=== PATIENT | male | born 1960 | race Hispanic/Latino ===

== ENCOUNTER 2025-02-16 05:32 | Day surgery (SDC) | payer OTHER ==
[2025-02-14 11:24] LABS: BASOPHILS # (AUTO) 0.03 K/uL (0.00-0.20); BASOPHILS % (AUTO) 0.4 % (0.0-5.0); EOSINOPHILS # (AUTO) 0.05 K/uL (0.00-0.70); EOSINOPHILS % (AUTO) 0.6 % (0.0-8.0); HEMATOCRIT 42.5 % (42-54); IMMATURE GRANULOCYTE ABSOLUTE 0.07 K/uL (0-1); LYMPHOCYTES % (AUTO) 25.6 % (21.0-51.0); MEAN CORPUSCULAR HEMOGLOBIN 33.1 pg (27.0-33.0); MEAN CORPUSCULAR HGB CONC 33.9 g/dL (32.0-36.0); MEAN CORPUSCULAR VOLUME 97.7 fL (79-99); MONOCYTES # (AUTO) 0.5 K/uL (0.1-1.0); NEUTROPHILS # (AUTO) 5.3 K/uL (1.8-7.7); NEUTROPHILS % (AUTO) 66.5 % (40.0-77.0); PLATELET COUNT (AUTO) 242 K/uL (130-400); RED BLOOD CELL COUNT(AUTO) 4.35 MIL/uL (4.50-6.20); RED CELL DISTRIBUTION WIDTH 12.3 % (11.0-15.5)
[2025-02-14 11:29] VITALS: BP 152/73; PULSE 72; RESP 16; TEMP 98
[2025-02-14 11:30] LABS: APPEARANCE,URINE CLEAR (CLEAR); BILIRUBIN,URINE NEGATIVE (NEGATIVE); COLOR,URINE COLORLESS (YELLOW); GLUCOSE, URINE (UA) NEGATIVE (NEGATIVE); KETONES,URINE NEGATIVE (NEGATIVE); LEUKOCYTE ESTERASE ,URINE NEGATIVE Leu/uL (NEGATIVE); NITRATE,URINE NEGATIVE (NEGATIVE); OCCULT BLOOD,URINE NEGATIVE (NEGATIVE); PROTEIN,URINE NEGATIVE (NEGATIVE); UROBILINOGEN,URINE 0.2 mg/dL (0.2-1.0)
[2025-02-14 11:31] LABS: ADD UA MICROSCOPIC NO
[2025-02-14 11:32] LABS: POTASSIUM 4.2 mmol/L (3.5-5.1)
[2025-02-14 11:49] LABS: B-TYPE NATRIURETIC PEPTIDE 47 pg/mL (0-100)
--- NOTE | 2025-02-14 12:33 | HMCIMG ---
CHEST 1VW HISTORY: Preop COMPARISON: None FINDINGS: A frontal projection of the chest was obtained. No acute pulmonary infiltrates is seen. The heart is borderline enlarged. Degenerative changes are seen. Aortic calcifications are seen. IMPRESSION: 1. No acute pulmonary infiltrate is seen.
--- NOTE | 2025-02-15 12:01 | EKG ---
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
[2025-02-16] VITALS (11 sets, daily range): BP systolic 102–151; BP diastolic 56–83; PULSE 55–76; RESP 11–16; TEMP 96.8–97.7
[~2025-02-16] VITALS: Ht 162.6 cm; Wt 93.0 kg
[~2025-02-16 05:32] MED LIST: ASPI-1443 PO; ATOR40TA69 PO; DICL75TA5 PO; METF-444 PO
[2025-02-16 06:29] LABS: INR 1.02 (0.85-1.15); PROTHROMBIN TIME 10.8 SEC (9.6-11.6)
[2025-02-16] MEDS: 0.9%NACL 1000ML 1,000 ML IV SCH (06:47)
[2025-02-16] MEDS ORDERED: IODIXANOL 320 MG/ML 100 ML VIAL ONE ×2 (07:08→09:32)
[2025-02-16] MEDS ORDERED: LIDOCAINE HCL 400MG/20ML VIAL ONE (07:08)
[2025-02-16] MEDS ORDERED: HEParin 10,000 UNIT/10ML (1,000 UNIT/ML) VIAL ONE (07:09)
[2025-02-16] MEDS ORDERED: HEParin-NS 1,000 UNIT/500 ML 1,000 ML IV ONE (07:09)
[2025-02-16] MEDS ORDERED: NITROGLYCERIN 50MG VIAL ONE (07:09)
[2025-02-16] MEDS ORDERED: SODIUM BICARB 50MEQ 50ML VIAL 50 ML ONE (07:10)
[2025-02-16] MEDS ORDERED: MIDAZOLAM HCL 1 MG/ML 2ML VIAL ONE (07:37)
[2025-02-16] MEDS ORDERED: FENTanyl CITRate PF 50 MCG/1 ML 2ML VIAL ONE (07:37)
[2025-02-16] MEDS ORDERED: cloPIDOgrel 300MG TAB ONE (08:24)
[2025-02-16] MEDS ORDERED: HEParin-NS 1,000 UNIT/500 ML 500 ML IV ONE (08:29)
[2025-02-16] MEDS ORDERED: ondanSETRON 4MG INJ ONE ×2 (08:43)
[2025-02-16] MEDS ORDERED: CLOP75TA32 PO (09:58)
[2025-02-16] MEDS ORDERED: 0.9%NACL 1000ML 1,000 ML IV SCH (10:00)
--- NOTE | 2025-02-16 10:26 | PRN ---
Abdominal Aortogram With Pelvic Runoff Followed By Left Lower Extremity Digital Subtraction Arteriogram, Shockwave Nurses Aide Left Superficial Femoral And Dcp Left Superficial Femoral With Unsuccessful Attempted Angioplasty Of Anterior Tibial And Posterior Tibial Indication: Claudication is disabling, limiting ambulation to less than 30 ft, worse on left. Technique: Patient was brought to the lab in a fasting state after informed consent and sedated with 1 mg Versed and 50 mcg fentanyl. This was repeated later in the procedure. Under local anesthesia with 1% lidocaine using fluoroscopic and ultrasound guidance the right common femoral artery was punctured anteriorly and a six Swiss sheath was inserted. An Omni flush catheter was positioned in the distal abdominal aorta and an aortogram with pelvic runoff was obtained by digital subtraction in 20 degree UKRAINIAN projection. The Omni flush was repositioned in the proximal superficial femoral and digital subtraction arteriography of the left lower extremity was completed. We exchanged for a six Swiss 45 cm sheath and wired the anterior tibial with a 300 cm run-through guidewire, positioned at the level of the calf. We administered 600 mg clopidogrel orally and 7500 units aqueous heparin intravenously, then guided subsequent heparin administration according to ACT, keeping it above 300. We performed shockwave angioplasty on mid SFA calcified stenosis using a 6 x 80 mm balloon, with overlapping inflations that covered another lesion 45 cm distal and another one 45 cm proximal to the index lesion. Four hundred treatments were administered to the middle lesion, and approximately 200 each to the others. We then exchanged for a six by 60 mm shockwave and applied another 90 treatments to the index lesion, 60 treatments to the more distal lesion, and 150 treatments to the proximal lesion. We then inspected results angiographically. We then attempted to cross the distal anterior tibial disease at the ankle using the run-through unsuccessfully. We placed a mini exchange catheter and still could not cross. We exchanged for a 0.014 command wire and still could not cross. We also failed with a 12. [employer]acle brothers. We then attempted to cross the posterior tibial unsuccessfully using the [employer] and a run- through, and we then elected to treat the entire diseased SFA segment with a single 6 x 150 mm balloon inflated to six atmospheres for 3 minutes. Final results were inspected angiographically and we removed the catheter, then removed the sheath and closed with Perclose with excellent hemostasis and no complications. The patient received 160 mL contrast for this study. Results: Abdominal aorta and pelvic vessels are free of disease. Left profunda femoris is notable for some distal disease. The left superficial femoral is notable for a calcified 50% stenosis which is eccentric, located in mid thigh. At mid thigh at the level of the medial branch of the SFA is a calcified relatively discrete 90% stenosis, and just before Jorge's canal there is a radiolucent apparently obstructive calcified 50% stenosis. Just proximal to the geniculate is a calcified 40% stenosis and there are two calcified 50% lesions in the popliteal. These are difficult to image because of a prosthetic knee, but were apparent when frog-leg SUGGS imaging was performed. The left anterior tibial is notable for a calcified 70% ostial stenosis. At the ankle there is calcified 80% stenosis, then three [employer] skip lesions from just above the malleolus to the proximal dorsalis pedis, then the dorsalis pedis is occluded with minimal collateral into the foot and toes. The left tibioperoneal is notable for a 50% calcified stenosis at its origin. The left peroneal is patent to the ankle and since collaterals into the heel. The left posterior tibial feels very slowly and there is a 90% proximal stenosis and then calcified segmental total occlusion from the calf to the heel. Intervention: The three mid SFA lesions were reduced from 50-20, 90-20, and 50-20% respectively with significantly improved flow after shockwave and DCP. The ostium of the anterior tibial was not treated; there appeared to be reasonably good flow through the calf through this lesion. The four distal 80 to 100% lesions could not be treated. The posterior tibial could not be wired. Conclusions: It is hoped that improved inflow through the successfully treated SFA will result in improved claudication, but anterior tibial and posterior tibial disease could not be treated. FADIA GOYAL MD Feb 16, 2025 10:26
--- NOTE | 2025-02-16 14:04 | NUR ---
report: report given to catrina carmen rn
[2025-02-17] MEDS ORDERED: cloPIDOgrel 75MG TAB PO SCH (09:00)
[2025-02-17] MEDS ORDERED: ASPIRIN 81MG CHEW TAB PO SCH (09:00)
== END 2025-02-16 15:50 | disposition home or self-care (01) ==
LOC: DAH 05:32
PROVIDERS: ATTEND Internal Medicine Cardiovascular Disease
DX: E11.51 Type 2 diabetes mellitus with diabetic peripheral angiopathy without gangrene (principal); I70.212 Atherosclerosis of native arteries of extremities with intermittent claudication, left leg; I44.4 Left anterior fascicular block; Z96.652 Presence of left artificial knee joint; Z79.84 Long term (current) use of oral hypoglycemic drugs; Z79.01 Long term (current) use of anticoagulants; Z79.899 Other long term (current) drug therapy; Z53.8 Procedure and treatment not carried out for other reasons
CPT/HCPCS: 80048; 83880; 85025; 85730; 81003; 36415 ×2; 71045; 93005; 75630; 37228; 85347 ×2; 85610; 82948 ×2; C9764; C1725 ×2; C1894 ×2; C1769 ×5; C1887; C1760; C1893; C2623; J3010; J3490 ×3; J7030; J1644 ×3; J2250; J2405 ×2; Q9967; A4215; A4222; A4221; A4663; A4216; A4606; A4223 ×3; 75716; 96360; 96361; 99156; 99157

== ENCOUNTER 2025-04-04 06:56 | Day surgery (SDC) | payer OTHER ==
[2025-03-30 12:36] LABS: BASOPHILS # (AUTO) 0.02 K/uL (0.00-0.20); BASOPHILS % (AUTO) 0.3 % (0.0-5.0); EOSINOPHILS # (AUTO) 0.01 K/uL (0.00-0.70); EOSINOPHILS % (AUTO) 0.1 % (0.0-8.0); HEMATOCRIT 40.8 % (42-54); IMMATURE GRANULOCYTE ABSOLUTE 0.06 K/uL (0-1); LYMPHOCYTES # (AUTO) 1.4 K/uL (1.0-4.8); LYMPHOCYTES % (AUTO) 18.6 % (21.0-51.0); MEAN CORPUSCULAR HEMOGLOBIN 33.1 pg (27.0-33.0); MEAN CORPUSCULAR HGB CONC 33.6 g/dL (32.0-36.0); MEAN CORPUSCULAR VOLUME 98.6 fL (79-99); MONOCYTES # (AUTO) 0.4 K/uL (0.1-1.0); MONOCYTES % (AUTO) 5.7 % (3.0-13.0); NEUTROPHILS # (AUTO) 5.6 K/uL (1.8-7.7); NEUTROPHILS % (AUTO) 74.5 % (40.0-77.0); PLATELET COUNT (AUTO) 210 K/uL (130-400); RED BLOOD CELL COUNT(AUTO) 4.14 MIL/uL (4.50-6.20); RED CELL DISTRIBUTION WIDTH 12.7 % (11.0-15.5); WHITE BLOOD COUNT (AUTO) 7.5 K/uL (4.8-10.8)
[2025-03-30 12:38] LABS: APPEARANCE,URINE CLEAR (CLEAR); BILIRUBIN,URINE NEGATIVE (NEGATIVE); COLOR,URINE LIGHT-YELLOW (YELLOW); GLUCOSE, URINE (UA) 30 mg/dL (NEGATIVE); KETONES,URINE NEGATIVE (NEGATIVE); LEUKOCYTE ESTERASE ,URINE NEGATIVE Leu/uL (NEGATIVE); NITRATE,URINE NEGATIVE (NEGATIVE); OCCULT BLOOD,URINE NEGATIVE (NEGATIVE); PROTEIN,URINE NEGATIVE (NEGATIVE); UROBILINOGEN,URINE 0.2 mg/dL (0.2-1.0)
[2025-03-30 12:42] LABS: POTASSIUM 4.3 mmol/L (3.5-5.1)
[2025-03-30 12:45] LABS: INR 0.95 (0.85-1.15); PROTHROMBIN TIME 10.1 SEC (9.6-11.6)
[2025-03-30 12:47] VITALS: BP 192/92; PULSE 72; RESP 18; TEMP 97.5
[2025-03-30 12:47] LABS: PARTIAL THROMBOPLASTIN TIME 25.9 SEC (26.3-35.5)
[2025-03-30 12:51] LABS: ADD UA MICROSCOPIC YES
--- NOTE | 2025-03-30 13:27 | EKG ---
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
[2025-03-30 13:47] LABS: B-TYPE NATRIURETIC PEPTIDE 50 pg/mL (0-100)
--- NOTE | 2025-03-30 14:01 | HMCIMG ---
Exam Type: CHEST 1VW Clinical Information: pre-op Comparison: None Findings: The lungs are clear of infiltrates. The heart is normal in size. The bony and soft tissue structures of the chest are unremarkable. Impression: Clear lungs.
[2025-03-30 14:09] LABS: BACTERIA,URINE None Seen /HPF (None Seen); MUCUS,URINE Rare LPF (None Seen); RBC,URINE None Seen /HPF (0-1); SQUAMOUS EPITHELIAL CELL,UR Rare /HPF (0-2); WBC,URINE None Seen /HPF (0-1)
[~2025-04-04] VITALS: Ht 162.6 cm; Wt 92.9 kg
[2025-04-04] VITALS (10 sets, daily range): BP systolic 122–172; BP diastolic 65–82; PULSE 57–70; RESP 10–18; TEMP 96.3–98.7
[~2025-04-04 06:56] MED LIST changes: -ATOR40TA69 PO; -DICL75TA5 PO
[2025-04-04] MEDS: 0.9%NACL 1000ML 1,000 ML IV SCH (07:32)
[2025-04-04] MEDS ORDERED: LIDOCAINE HCL 400MG/20ML VIAL ONE (11:03)
[2025-04-04] MEDS ORDERED: HEParin 10,000 UNIT/10ML (1,000 UNIT/ML) VIAL ONE (11:03)
[2025-04-04] MEDS ORDERED: SODIUM BICARB 50MEQ 50ML VIAL 50 ML ONE (11:03)
[2025-04-04] MEDS ORDERED: IODIXANOL 320 MG/ML 100 ML VIAL ONE (11:03)
[2025-04-04] MEDS ORDERED: HEParin-NS 1,000 UNIT/500 ML 1,000 ML IV ONE (11:03)
[2025-04-04] MEDS ORDERED: NITROGLYCERIN 50MG VIAL ONE (11:04)
[2025-04-04] MEDS ORDERED: MIDAZOLAM HCL 1 MG/ML 2ML VIAL ONE ×2 (12:07→12:20)
[2025-04-04] MEDS ORDERED: FENTanyl CITRate PF 50 MCG/1 ML 2ML VIAL ONE ×2 (12:07→12:19)
[2025-04-04] MEDS ORDERED: cloPIDOgrel 300MG TAB ONE (13:24)
[2025-04-04] MEDS ORDERED: ASPIRIN 325MG EC TAB PO ONE (13:25)
[2025-04-04] MEDS ORDERED: ASPI-1005 PO (13:57)
[2025-04-04] MEDS ORDERED: ATOR40TA69 PO (13:57)
[2025-04-04] MEDS ORDERED: CLOP-31 PO (13:57)
[2025-04-04] MEDS ORDERED: 0.9%NACL 1000ML 1,000 ML IV SCH (14:00)
--- NOTE | 2025-04-04 14:20 | PRN ---
ABDOMINAL AORTOGRAM WITH PELVIC RUNOFF, REPOSITION CATHETER IN RIGHT POPLITEAL FOR RIGHT LOWER EXTREMITY DIGITAL SUBTRACTION ARTERIOGRAMS, DRUG COATED BALLOON ANGIOPLASTY RIGHT POPLITEAL AND SUPERFICIAL FEMORAL ARTERY. INDICATION: DISABLING CLAUDICATION, FAILED REHAB, LEFT-SIDED IMPROVED AFTER INTERVENTION AND RIGHT SIDE REQUIRES INTERVENTION. TECHNIQUE: Patient was brought to the lab in a fasting state after informed consent and sedated with 1 mg Versed and 50 mcg fentanyl. Under local anesthesia with 1% lidocaine using micropuncture technique under fluoroscopic and ultrasound guidance the left common femoral artery was punctured and a six Malawian sheath was inserted. An Omni flush catheter was positioned in the abdominal aorta and abdominal aortography with pelvic runoff was obtained. The catheter was repositioned in the right superficial femoral/common femoral position and right lower extremity digital subtraction arteriograms were obtained. In order to improve quality of imaging in the right lower extremity, an exchange was made for a 90 cm six Malawian sheath which was positioned in the right popliteal. Right lower extremity digital subtraction arteriography was completed. We then performed a pullback recording, documenting a 69 mm gradient from distal popliteal to proximal thigh. This was gradually increasing gradient all the way down to the distal popliteal, but at mid to proximal thigh there was no further gradient. Anticoagulation was guided by ACT and the patient received 600 mg clopidogrel and 325 mg aspirin orally. We exchanged for a 45 cm six Malawian sheath which was positioned in the proximal superficial femoral and we wired the peroneal with a advantage Glidewire. We positioned a 250 x 6 mm impact Admiral paclitaxel coated balloon in the superficial femoral, positioned at the proximal end of the diseased segment, and we inflated to six atmospheres for 3 minutes. We then exchanged for a 5 x 80 mm Adderall paclitaxel coated balloon which was positioned from the distal SFA, adjacent to the previous dilated segment, extending through the popliteal. This was inflated to eight atmospheres for 3 minutes and then removed. Digital subtraction arteriograms repeated on the right lower extremity through the SFA and to the infrapopliteal vessels as well. It was not jaundiced possible to improve circulation in the infrapopliteal vessels, as there were diffuse total occlusions of the distal SFA and SMASH HAND without significant runoff collaterals.. That the peroneal collateralized the dorsalis pedis and also supplied faint collaterals to distal SMASH HAND distribution. At the conclusion of the procedure the catheter and sheath were removed and hemostasis was obtained by Perclose with excellent hemostasis and no complications. 105 mL contrast was used for this procedure. Results: Distal abdominal aorta is free of disease. Left and right common iliac, internal iliac, and external iliac arteries are free of disease. Right and left common femoral arteries are free of disease. Right profunda femoris is diffusely diseased with calcified 60-95% lesions from its origin to the distal thigh. Right superficial femoral is notable for a radiolucent calcified 70% stenosis at mid thigh, then diffuse 70% calcified radial lucent lesions from mid thigh through Jorge's canal, then the right popliteal is notable for diffuse calcified radiolucent 60-75% lesions. Right anterior tibial is patent to the distal calf, then totally occluded throughout the rest of its length, with minimal collateralization from the peroneal to the proximal dorsalis pedis. The arch and the digital vessels are not imaged. Right tibioperoneal is free of high-grade disease. Right posterior tibial is notable for 40% ostial stenosis then a segmental calcified 70% lesion below the calf, then a 90% lesion, then midway between the malleolus in the calf the SMASH HAND is totally occluded segmentally and the distal SMASH HAND distribution is faintly collateralized by the peroneal. The peroneal is patent all the way to the ankle and supplies collaterals to the dorsalis pedis and minimally into the heel. Interventional Results: The infrapopliteal vessels are unchanged on final angiogram. There is faint collateral flow into the foot. Right popliteal post intervention exhibits the same slow flow is seen prior to intervention, but without the radiolucent lesions previously identified. Right superficial femoral post intervention shows a smooth lumen without the focal stenoses observed previously. Conclusions: There was very slow flow before and after intervention, and the right foot is not well supplied by diffusely diseased/segmentally totally occluded infrapopliteal vessels. We attempted to improve inflow because we identified a 69 mm gradient through the thigh and popliteal, and we did see some improvement in the radiolucent calcified disease after DCB. It is unclear how much clinical benefit we will accrue. FADIA GOYAL MD April 04, 2025 14:20
[2025-04-04] MEDS ORDERED: atorVAStatin 40 MG TABLET PO SCH (21:00)
[2025-04-05] MEDS ORDERED: ASPIRIN 81MG CHEW TAB PO SCH (09:00)
[2025-04-05] MEDS ORDERED: cloPIDOgrel 75MG TAB PO SCH (09:00)
== END 2025-04-04 17:40 | disposition home or self-care (01) ==
LOC: DAH 06:56
PROVIDERS: ATTEND Internal Medicine Cardiovascular Disease
DX: E11.51 Type 2 diabetes mellitus with diabetic peripheral angiopathy without gangrene (principal); I70.211 Atherosclerosis of native arteries of extremities with intermittent claudication, right leg; I77.89 Other specified disorders of arteries and arterioles; E11.40 Type 2 diabetes mellitus with diabetic neuropathy, unspecified; M79.10 Myalgia, unspecified site; Z79.899 Other long term (current) drug therapy; Z79.82 Long term (current) use of aspirin; Z79.84 Long term (current) use of oral hypoglycemic drugs; Z96.652 Presence of left artificial knee joint; Z79.01 Long term (current) use of anticoagulants
CPT/HCPCS: 80048; 83880; 85025; 85610; 85730; 82306; 81001; 36415; 71045; 93005; 37224; 75716; 75625; 85347; 82948 ×2; C1769 ×2; C1894 ×2; C1760; C1893 ×2; C2623 ×2; J3010; J3490 ×3; J7030; J1644 ×2; J2250; Q9967; A4215; A4222; A4221; A4663; A4216; A4606; A4223 ×3; 96360; 96361; 99156; 99157